=== PATIENT | female | born 1990 | race Caucasian/White ===

== ENCOUNTER 2023-02-22 02:32 | Emergency (ER) | payer MEDICAID ==
[~2023-02-22] VITALS: Ht 157.5 cm; Wt 72.7 kg
[2023-02-22 02:45] VITALS: BP 129/71
== END 2023-02-22 04:33 | disposition left against medical advice (07) ==
LOC: ER 02:35
DX: R10.9 Unspecified abdominal pain (principal); Z53.21 Procedure and treatment not carried out due to patient leaving prior to being seen by health care provider
CPT/HCPCS: 99281

== ENCOUNTER 2023-08-29 09:24 | Inpatient (IN) | payer MEDICAID ==
[~2023-08-29] VITALS: Ht 157.5 cm; Wt 68.0 kg
[2023-08-29] MEDS ORDERED: ondansetron 4mg rapidly disintigrating tab PO ONE (09:45)
[2023-08-29] MEDS ORDERED: mag hydrox/Alum hydrox/simeth 30ml oral suspension PO ONE (09:45)
[2023-08-29] MEDS ORDERED: LIDOcaine Viscous 15ml cup MM PRN (09:45)
[2023-08-29] MEDS ORDERED: normal saline 1000ML IV soln IVB ONE (09:45)
[2023-08-29 10:45] LABS: URINE HCG NEGATIVE (NEG)
[2023-08-29 10:46] LABS: BILIRUBIN,URINE NEGATIVE (Neg); CLARITY,URINE CLEAR (Clear); COLOR,URINE STRAW (Yellow); GLUCOSE, URINE NEGATIVE (Neg); KETONES,URINE NEGATIVE (Neg); LEUKOCYTE ESTERASE ,URINE NEGATIVE (Neg); NITRITES, URINE NEGATIVE (Neg); OCCULT BLOOD,URINE NEGATIVE (Neg); PROTEIN,URINE NEGATIVE (Neg); UA COLLECTION TYPE CLN CATCH MIDSTREAM; UROBILINOGEN,URINE 0.2 E.U/dL (0.2-1.0)
[2023-08-29] MEDS: morphine 2 MG/ML inj. syringe IV PRN ×4 (10:51→20:16)
[2023-08-29 10:58] LABS: BASOPHILS # (AUTO) 0.1 X10'3 (0-0.2); BASOPHILS % (AUTO) 0.5 % (0-1); EOSINOPHILS % (AUTO) 0.2 % (0-6); HEMATOCRIT 40.5 % (35.0-45.0); HEMOGLOBIN 13.6 g/dl (12.0-16.0); LYMPHOCYTES % (AUTO) 8.8 % (21-51); MEAN CORPUSCULAR HEMOGLOBIN 30.3 PG (27.0-31.0); MEAN CORPUSCULAR HGB CONC 33.6 g/dL (33.0-36.5); MEAN CORPUSCULAR VOLUME 90.3 FL (78-98); MEAN PLATELET VOLUME 8.3 FL (7.4-10.4); MONOCYTES # (AUTO) 1.1 X10'3 (0-0.9); MONOCYTES % (AUTO) 9.4 % (2-12); NEUTROPHILS # (AUTO) 9.4 X10'3 (1.8-7.7); NEUTROPHILS % (AUTO) 81.1 % (42-75); PLATELET COUNT 395 X10'3 (140-440); RED BLOOD COUNT 4.48 X10'6 (4.20-5.60); RED CELL DISTRIBUTION WIDTH 13.5 % (11.5-14.5); WHITE BLOOD COUNT 11.6 X10'3 (4.5-11.0)
[2023-08-29] MEDS ORDERED: piperacillin/tazo 4.5gm/100ml 100 ML IV ONE (11:10)
[2023-08-29 11:13] LABS: ALANINE AMINOTRANSFERASE 641 U/L (12-78); ALBUMIN 3.2 G/DL (3.4-5.0); ALKALINE PHOSPHATASE 310 IU/L (46-116); ANION GAP 9 (8-16); ASPARTATE AMINO TRANSFERASE 462 U/L (10-37); BILIRUBIN,TOTAL 5.6 MG/DL (0.1-1.0); BLOOD UREA NITROGEN 3 MG/DL (7-18); BUN/CREATININE RATIO 4.7 (10.0-20.0); CALCIUM 9.3 MG/DL (8.5-10.1); CHLORIDE 99 MMOL/L (99-107); CREATININE 0.64 MG/DL (0.40-0.90); GLUCOSE 123 MG/DL (70-104); LIPASE 153 U/L (16-77); POTASSIUM 3.4 MMOL/L (3.5-5.1); SODIUM 139 MMOL/L (135-145); TOTAL CARBON DIOXIDE 30.6 MMOL/L (24-32); eCRCL 101 ML/MIN; eGFR > 90 ML/MIN
[2023-08-29 11:15] LABS: ALBUMIN/GLOBULIN RATIO 0.6 (1.1-1.5); TOTAL PROTEIN 8.7 G/DL (6.4-8.2)
[2023-08-29] MEDS ORDERED: iohexol 300mg/ml 100ml inj. ONE (11:26)
[2023-08-29] MEDS ORDERED: magnesium 2GM in 50ml NS 50 ML IV PRN (12:20)
[2023-08-29] MEDS ORDERED: magnesium Cl slow-release 64mg tablet PO PRN (12:20)
[2023-08-29] MEDS ORDERED: potassium Cl 40MEQ/1/2NS 520ml 520 ML IV PRN (12:20)
[2023-08-29] MEDS ORDERED: potassium Cl 20 mEq SR tablet PO PRN (12:20)
[2023-08-29] MEDS: nicotine 14mg patch - 24hr TD SCH (12:20)
[2023-08-29] MEDS ORDERED: acetaminophen 325mg tablet PO PRN (12:20)
[2023-08-29] MEDS ORDERED: magnesium 4gm in 100ml NS 100 ML IV PRN (12:20)
[2023-08-29] MEDS ORDERED: ondansetron/PF 4mg/2ml inj IV PRN (12:20)
[2023-08-29] MEDS: normal saline 1000ml 1,000 ML IV SCH (12:59)
[2023-08-29 13:00] LABS: PROTHROMBIN TIME 10.4 SECONDS (9.0-12.0)
[2023-08-29] MEDS: potassium Cl 20 mEq SR tablet PO PRN (13:35)
[2023-08-29] MEDS: piperacillin/tazo 3.375gm/50ml 50 ML IV SCH (20:17)
[2023-08-29] MEDS: enoxaparin 40mg/0.4ml syringe SQ SCH (20:17)
[2023-08-30] VITALS (11 sets, daily range): BP systolic 150–175; BP diastolic 99–132; PULSE 85–124; RESP 12–21; TEMP 97.8–97.9; O2SAT 95–99
[2023-08-30] MEDS: morphine 2 MG/ML inj. syringe IV PRN (01:29)
[2023-08-30] MEDS: normal saline 1000ml 1,000 ML IV SCH ×3 (02:04→18:20)
[2023-08-30 03:32] LABS: BASOPHILS # (AUTO) 0.1 X10'3 (0-0.2); BASOPHILS % (AUTO) 0.4 % (0-1); EOSINOPHILS # (AUTO) 0.1 X10'3 (0-0.9); EOSINOPHILS % (AUTO) 0.6 % (0-6); HEMATOCRIT 37.7 % (35.0-45.0); HEMOGLOBIN 12.7 g/dl (12.0-16.0); LYMPHOCYTES # (AUTO) 1.2 X10'3 (1.1-4.8); LYMPHOCYTES % (AUTO) 9.5 % (21-51); MEAN CORPUSCULAR HEMOGLOBIN 30.4 PG (27.0-31.0); MEAN CORPUSCULAR HGB CONC 33.7 g/dL (33.0-36.5); MEAN CORPUSCULAR VOLUME 90.2 FL (78-98); MEAN PLATELET VOLUME 8.4 FL (7.4-10.4); MONOCYTES # (AUTO) 1.1 X10'3 (0-0.9); NEUTROPHILS % (AUTO) 80.5 % (42-75); PLATELET COUNT 389 X10'3 (140-440); RED BLOOD COUNT 4.18 X10'6 (4.20-5.60); RED CELL DISTRIBUTION WIDTH 13.5 % (11.5-14.5); WHITE BLOOD COUNT 12.4 X10'3 (4.5-11.0)
[2023-08-30 03:42] LABS: ALANINE AMINOTRANSFERASE 482 U/L (12-78); ALBUMIN 2.8 G/DL (3.4-5.0); ALKALINE PHOSPHATASE 347 IU/L (46-116); ANION GAP 8 (8-16); ASPARTATE AMINO TRANSFERASE 228 U/L (10-37); BLOOD UREA NITROGEN 1 MG/DL (7-18); BUN/CREATININE RATIO 1.6 (10.0-20.0); CALCIUM 8.9 MG/DL (8.5-10.1); CHLORIDE 99 MMOL/L (99-107); CREATININE 0.62 MG/DL (0.40-0.90); GLUCOSE 127 MG/DL (70-104); POTASSIUM 3.2 MMOL/L (3.5-5.1); SODIUM 136 MMOL/L (135-145); TOTAL CARBON DIOXIDE 28.9 MMOL/L (24-32); eCRCL 104 ML/MIN; eGFR > 90 ML/MIN
[2023-08-30 03:57] LABS: ALBUMIN/GLOBULIN RATIO 0.5 (1.1-1.5); TOTAL PROTEIN 8.5 G/DL (6.4-8.2)
[2023-08-30] MEDS: piperacillin/tazo 3.375gm/50ml 50 ML IV SCH ×3 (04:06→20:16)
[2023-08-30] MEDS ORDERED: HYDROmorphone 1 mg/ml syringe IV ONE (07:05)
[2023-08-30] MEDS: nicotine 14mg patch - 24hr TD SCH (09:18)
[2023-08-30] MEDS ORDERED: morphine 4 MG/ML inj SYRINge IV PRN (09:40)
[2023-08-30] MEDS: morphine 4 MG/ML inj SYRINge IV PRN ×2 (11:04→20:15)
[2023-08-30] MEDS ORDERED: MIDAZolam 1 MG/ML 5ML VIAL IV PRN (14:05)
[2023-08-30] MEDS ORDERED: fentaNYL/PF 50MCG/1 ML 2ML syringe IV PRN (14:05)
[2023-08-30] MEDS ORDERED: MIDAZolam 1 MG/ML 5ML VIAL ONE ×2 (14:55→15:48)
[2023-08-30] MEDS ORDERED: iohexol 300mg/ml 100ml inj. ONE (14:55)
[2023-08-30] MEDS ORDERED: fentaNYL/PF 50MCG/1 ML 2ML syringe ONE ×2 (14:55→15:48)
[2023-08-30] MEDS ORDERED: LIDOcaine Viscous 15ml cup ONE (14:55)
[2023-08-30] MEDS ORDERED: glucagon, human recombinant 1mg kit ONE (14:55)
[2023-08-30] MEDS ORDERED: NO HOME MEDS (18:19)
[2023-08-30] MEDS: potassium Cl 20 mEq SR tablet PO PRN (20:15)
[2023-08-30] MEDS: enoxaparin 40mg/0.4ml syringe SQ SCH (20:16)
[2023-08-31] VITALS (17 sets, daily range): BP systolic 100–148; BP diastolic 70–95; PULSE 72–118; RESP 14–30; TEMP 97.5–98; O2SAT 94–99
[2023-08-31] MEDS: potassium Cl 20 mEq SR tablet PO PRN (01:14)
[2023-08-31] MEDS: piperacillin/tazo 3.375gm/50ml 50 ML IV SCH ×2 (03:56→17:30)
[2023-08-31] MEDS: normal saline 1000ml 1,000 ML IV SCH ×2 (03:57→16:16)
[2023-08-31] MEDS: nicotine 14mg patch - 24hr TD SCH (07:48)
[2023-08-31 08:09] LABS: BASOPHILS # (AUTO) 0.1 X10'3 (0-0.2); BASOPHILS % (AUTO) 0.5 % (0-1); EOSINOPHILS # (AUTO) 0.1 X10'3 (0-0.9); EOSINOPHILS % (AUTO) 0.8 % (0-6); HEMATOCRIT 34.6 % (35.0-45.0); HEMOGLOBIN 11.7 g/dl (12.0-16.0); LYMPHOCYTES # (AUTO) 1.5 X10'3 (1.1-4.8); LYMPHOCYTES % (AUTO) 15.1 % (21-51); MEAN CORPUSCULAR HEMOGLOBIN 30.4 PG (27.0-31.0); MEAN CORPUSCULAR HGB CONC 33.7 g/dL (33.0-36.5); MEAN CORPUSCULAR VOLUME 90.3 FL (78-98); MEAN PLATELET VOLUME 8.6 FL (7.4-10.4); MONOCYTES # (AUTO) 0.9 X10'3 (0-0.9); MONOCYTES % (AUTO) 9.4 % (2-12); NEUTROPHILS # (AUTO) 7.4 X10'3 (1.8-7.7); NEUTROPHILS % (AUTO) 74.2 % (42-75); PLATELET COUNT 343 X10'3 (140-440); RED BLOOD COUNT 3.83 X10'6 (4.20-5.60); RED CELL DISTRIBUTION WIDTH 13.6 % (11.5-14.5); WHITE BLOOD COUNT 9.9 X10'3 (4.5-11.0)
[2023-08-31 08:44] LABS: ALANINE AMINOTRANSFERASE 281 U/L (12-78); ALBUMIN 2.2 G/DL (3.4-5.0); ALKALINE PHOSPHATASE 339 IU/L (46-116); ANION GAP 9 (8-16); ASPARTATE AMINO TRANSFERASE 116 U/L (10-37); BILIRUBIN,TOTAL 5.1 MG/DL (0.1-1.0); BLOOD UREA NITROGEN 4 MG/DL (7-18); BUN/CREATININE RATIO 8.2 (10.0-20.0); CALCIUM 8.2 MG/DL (8.5-10.1); CHLORIDE 102 MMOL/L (99-107); CREATININE 0.49 MG/DL (0.40-0.90); GLUCOSE 97 MG/DL (70-104); POTASSIUM 3.5 MMOL/L (3.5-5.1); SODIUM 136 MMOL/L (135-145); TOTAL CARBON DIOXIDE 25.1 MMOL/L (24-32); eCRCL 132 ML/MIN; eGFR > 90 ML/MIN
[2023-08-31 08:47] LABS: ALBUMIN/GLOBULIN RATIO 0.5 (1.1-1.5); TOTAL PROTEIN 6.8 G/DL (6.4-8.2)
[2023-08-31] MEDS ORDERED: BUPIVAcaine 2.5mg/ml inj 50ml vial (contains preservative) ONE (12:47)
[2023-08-31] MEDS ORDERED: midazolam 1 mg/ML 2ml injection ONE (18:02)
[2023-08-31] MEDS ORDERED: fentaNYL/PF 50MCG/1 ML 2ML syringe ONE ×3 (18:02→20:51)
[2023-08-31] MEDS ORDERED: meperidine/PF 25mg/ml syringe IV PRN ×3 (18:10)
[2023-08-31] MEDS ORDERED: morphine 2 MG/ML inj. syringe IV PRN (18:10)
[2023-08-31] MEDS ORDERED: ondansetron/PF 4mg/2ml inj IV PRN ×2 (18:10→21:50)
[2023-08-31] MEDS ORDERED: morphine 4 MG/ML inj SYRINge IV PRN ×2 (18:10→21:50)
[2023-08-31] MEDS ORDERED: ringers solution, lacted 1,000 ML IV SCH (18:10)
[2023-08-31] MEDS ORDERED: INDOCYANINE GREEN 25 MG/10 ML VIAL IV ONE (18:22)
[2023-08-31] MEDS ORDERED: neostigmine methylsulfate 1 MG/ML 10ml vial ONE (18:32)
[2023-08-31] MEDS ORDERED: sevoflurane 250ml liquid IH ONE (18:32)
[2023-08-31] MEDS ORDERED: glycopyrrolate 0.2mg/ml inj ONE (18:32)
[2023-08-31] MEDS ORDERED: BUPIVAcaine/PF 2.5 mg/ml (0.25%) 30ml vial IJ ONE (19:00)
[2023-08-31] MEDS ORDERED: propofol inj 20 ML IV ONE (19:05)
[2023-08-31] MEDS ORDERED: LIDOcaine 2% (20mg/ml) 5ml vial ONE (19:05)
[2023-08-31] MEDS ORDERED: rocuronium 10mg/ml inj IV ONE ×2 (19:05→20:22)
[2023-08-31] MEDS ORDERED: ondansetron/PF 4mg/2ml inj ONE (19:05)
[2023-08-31] MEDS ORDERED: dexamethasone sod phosphate 4mg/ml inj. ONE (19:05)
[2023-08-31] MEDS: enoxaparin 40mg/0.4ml syringe SQ SCH (20:00)
[2023-08-31] MEDS ORDERED: phenylephrine 10mg/ml inj. -priapism dosing ONE (20:57)
[2023-08-31] MEDS ORDERED: BUPIVAcaine/PF 2.5mg/ml (0.25%) 10ml vial ONE (21:08)
[2023-08-31] MEDS ORDERED: BUPIVACAINE liposomal/PF 13.3 MG/ML vial IM ONE (21:08)
[2023-08-31] MEDS ORDERED: HYDROcodone/acetaminophen 5mg/325mg tablet PO PRN (21:50)
[2023-08-31] MEDS ORDERED: meperidine/PF 25mg/ml syringe ONE (21:50)
[2023-08-31] MEDS ORDERED: naloxone 0.4 mg/ml inj IV PRN (21:50)
[2023-08-31] MEDS ORDERED: sugammadex 200mg/2ml injection IV ONE (22:34)
[2023-08-31] MEDS: proCHLORperazine 10 MG/2 ml inj IV PRN ×2 (22:37→23:01)
[2023-08-31] MEDS: ketorolac trometh. 30mg/ml inj. IV PRN (23:05)
[2023-09-01] VITALS (9 sets, daily range): BP systolic 120–135; BP diastolic 75–84; PULSE 99–115; RESP 18–21; TEMP 97.5–98.6; O2SAT 95–98
[2023-09-01] MEDS: normal saline 1000ml 1,000 ML IV SCH ×3 (00:20→22:37)
[2023-09-01] MEDS: piperacillin/tazo 3.375gm/50ml 50 ML IV SCH ×3 (04:34→16:32)
[2023-09-01 07:31] LABS: BASOPHILS % (AUTO) 0.1 % (0-1); EOSINOPHILS % (AUTO) 0 % (0-6); HEMATOCRIT 32.9 % (35.0-45.0); HEMOGLOBIN 11.1 g/dl (12.0-16.0); LYMPHOCYTES # (AUTO) 0.9 X10'3 (1.1-4.8); MEAN CORPUSCULAR HEMOGLOBIN 30.9 PG (27.0-31.0); MEAN CORPUSCULAR HGB CONC 33.6 g/dL (33.0-36.5); MEAN CORPUSCULAR VOLUME 91.8 FL (78-98); MEAN PLATELET VOLUME 8.5 FL (7.4-10.4); MONOCYTES # (AUTO) 1.8 X10'3 (0-0.9); MONOCYTES % (AUTO) 9.3 % (2-12); NEUTROPHILS # (AUTO) 16.4 X10'3 (1.8-7.7); NEUTROPHILS % (AUTO) 85.6 % (42-75); PLATELET COUNT 388 X10'3 (140-440); RED BLOOD COUNT 3.58 X10'6 (4.20-5.60); RED CELL DISTRIBUTION WIDTH 13.6 % (11.5-14.5); WHITE BLOOD COUNT 19.1 X10'3 (4.5-11.0)
[2023-09-01 07:49] LABS: ALANINE AMINOTRANSFERASE 223 U/L (12-78); ALBUMIN 2.1 G/DL (3.4-5.0); ALBUMIN/GLOBULIN RATIO 0.4 (1.1-1.5); ALKALINE PHOSPHATASE 295 IU/L (46-116); ANION GAP 11 (8-16); ASPARTATE AMINO TRANSFERASE 107 U/L (10-37); BILIRUBIN,TOTAL 2.4 MG/DL (0.1-1.0); BLOOD UREA NITROGEN 8 MG/DL (7-18); BUN/CREATININE RATIO 12.5 (10.0-20.0); CALCIUM 8.2 MG/DL (8.5-10.1); CHLORIDE 105 MMOL/L (99-107); CREATININE 0.64 MG/DL (0.40-0.90); GLUCOSE 100 MG/DL (70-104); SODIUM 136 MMOL/L (135-145); TOTAL CARBON DIOXIDE 20.1 MMOL/L (24-32); TOTAL PROTEIN 6.8 G/DL (6.4-8.2); eCRCL 101 ML/MIN; eGFR > 90 ML/MIN
[2023-09-01] MEDS: nicotine 14mg patch - 24hr TD SCH (08:00)
[2023-09-01] MEDS: morphine 4 MG/ML inj SYRINge IV PRN ×2 (08:23→14:14)
[2023-09-01 11:56] LABS: HBSAG SCREEN Negative (Negative); HEP A AB, IGM Negative (Negative); HEPATITIS C VIRUS ANTIBODY Non Reactive (Non Reactive)
[2023-09-01] MEDS: ketorolac trometh. 30mg/ml inj. IV PRN (16:32)
[2023-09-01] MEDS: enoxaparin 40mg/0.4ml syringe SQ SCH (19:54)
[2023-09-02] MEDS: piperacillin/tazo 3.375gm/50ml 50 ML IV SCH ×2 (01:54→08:03)
[2023-09-02 02:00] VITALS: BP 144/89; PULSE 108; RESP 19; TEMP 97.9; O2SAT 96
[2023-09-02 07:00] VITALS: BP 145/95; PULSE 112; RESP 16; TEMP 97.7; O2SAT 98
[2023-09-02] MEDS: morphine 4 MG/ML inj SYRINge IV PRN (07:21)
[2023-09-02] MEDS: normal saline 1000ml 1,000 ML IV SCH (07:21)
[2023-09-02] MEDS: nicotine 14mg patch - 24hr TD SCH (07:21)
[2023-09-02 07:35] LABS: BASOPHILS % (AUTO) 0.3 % (0-1); EOSINOPHILS # (AUTO) 0.1 X10'3 (0-0.9); HEMATOCRIT 30.8 % (35.0-45.0); HEMOGLOBIN 10.4 g/dl (12.0-16.0); LYMPHOCYTES # (AUTO) 1.5 X10'3 (1.1-4.8); LYMPHOCYTES % (AUTO) 13.5 % (21-51); MEAN CORPUSCULAR HEMOGLOBIN 30.8 PG (27.0-31.0); MEAN CORPUSCULAR HGB CONC 33.7 g/dL (33.0-36.5); MEAN CORPUSCULAR VOLUME 91.4 FL (78-98); MEAN PLATELET VOLUME 8.1 FL (7.4-10.4); MONOCYTES # (AUTO) 1.2 X10'3 (0-0.9); MONOCYTES % (AUTO) 10.8 % (2-12); NEUTROPHILS # (AUTO) 8.3 X10'3 (1.8-7.7); NEUTROPHILS % (AUTO) 74.4 % (42-75); PLATELET COUNT 379 X10'3 (140-440); RED BLOOD COUNT 3.37 X10'6 (4.20-5.60); RED CELL DISTRIBUTION WIDTH 14.3 % (11.5-14.5); WHITE BLOOD COUNT 11.2 X10'3 (4.5-11.0)
[2023-09-02 08:00] VITALS: RESP 16; O2SAT 98
[2023-09-02 09:04] LABS: ALANINE AMINOTRANSFERASE 155 U/L (12-78); ALBUMIN/GLOBULIN RATIO 0.4 (1.1-1.5); ALKALINE PHOSPHATASE 233 IU/L (46-116); ANION GAP 11 (8-16); ASPARTATE AMINO TRANSFERASE 55 U/L (10-37); BILIRUBIN,TOTAL 1.5 MG/DL (0.1-1.0); BLOOD UREA NITROGEN 3 MG/DL (7-18); BUN/CREATININE RATIO 5.2 (10.0-20.0); CALCIUM 8.2 MG/DL (8.5-10.1); CHLORIDE 102 MMOL/L (99-107); CREATININE 0.58 MG/DL (0.40-0.90); GLUCOSE 120 MG/DL (70-104); POTASSIUM 3.1 MMOL/L (3.5-5.1); SODIUM 137 MMOL/L (135-145); TOTAL CARBON DIOXIDE 24.3 MMOL/L (24-32); TOTAL PROTEIN 6.8 G/DL (6.4-8.2); eCRCL 111 ML/MIN; eGFR > 90 ML/MIN
[2023-09-02 11:00] VITALS: BP 137/88; PULSE 118; RESP 12; TEMP 98.9; O2SAT 100
[2023-09-02] MEDS ORDERED: magnesium 4gm in 100ml NS 100 ML IV PRN (14:45)
[2023-09-02] MEDS ORDERED: potassium Cl 40MEQ/1/2NS 520ml 520 ML IV PRN (14:45)
[2023-09-02] MEDS ORDERED: magnesium Cl slow-release 64mg tablet PO PRN (14:45)
[2023-09-02] MEDS ORDERED: potassium Cl 20 mEq SR tablet PO PRN ×2 (14:45)
[2023-09-02] MEDS ORDERED: magnesium 2GM in 50ml NS 50 ML IV PRN (14:45)
[2023-09-02 15:00] VITALS: BP 127/78; PULSE 98; RESP 16; TEMP 98; O2SAT 95
[2023-09-02] MEDS ORDERED: HYDR-3964 PO (16:16)
== END 2023-09-02 17:15 | disposition home or self-care (01) | DRG 263 ==
LOC: ER 09:25 → ED HOLD 12:23 → EDBEDREQ 08-30 08:58 → PCU 3S 08-30 09:35
PROVIDERS: ADMIT Internal Medicine; ATTEND Internal Medicine
PROC: 0F798DZ Dilation of Common Bile Duct with Intraluminal Device, Via Natural or Artificial Opening Endoscopic (ICD-10-PCS; 2023-08-30)
PROC: BF101ZZ Fluoroscopy of Bile Ducts using Low Osmolar Contrast (ICD-10-PCS; 2023-08-30)
PROC: 8E0W4CZ Robotic Assisted Procedure of Trunk Region, Percutaneous Endoscopic Approach (ICD-10-PCS; 2023-08-31)
PROC: 0WJG0ZZ Inspection of Peritoneal Cavity, Open Approach (ICD-10-PCS; 2023-08-31)
PROC: 0FT44ZZ Resection of Gallbladder, Percutaneous Endoscopic Approach (ICD-10-PCS; principal; 2023-08-31 18:32)
DX: K80.62 Calculus of gallbladder and bile duct with acute cholecystitis without obstruction (principal); R74.01 Elevation of levels of liver transaminase levels
CPT/HCPCS: 36415; 43262; 43264; 43274; 74018; 74177; 74181; 76700; 80053; 81003; 81025; 83605; 83690; 84145; 85025; 85610; 86709; 86803; 86885; 86900; 86901; 87040; 87340; 87522; 97161; 97530; 97535; 99152; 99153; 99285; A4215; A4618; A4620; A7000; C1769; C2625; C9290; G0378; J0780; J1100; J1170; J1610; J1650; J1885; J2175; J2250; J2270; J2370; J2405; J2543; J2704; J2710; J3010; J3490; J7030; J7040; J7120; Q9967

== ENCOUNTER 2023-11-30 09:39 | Day surgery (SDC) | payer MEDICAID ==
[2023-11-30] VITALS (10 sets, daily range): BP systolic 122–151; BP diastolic 82–104; PULSE 57–86; RESP 14–20; O2SAT 99–100
[~2023-11-30 09:39] MED LIST: HYDR-3964 PO; NO HOME MEDS
[2023-11-30] MEDS ORDERED: MIDAZolam 1 MG/ML 5ML VIAL ONE (11:45)
[2023-11-30] MEDS ORDERED: iohexol 300mg/ml 100ml inj. ONE (11:45)
[2023-11-30] MEDS ORDERED: fentaNYL/PF 50MCG/1 ML 2ML syringe ONE (11:45)
[2023-11-30] MEDS ORDERED: glucagon, human recombinant 1mg kit ONE (11:45)
[2023-11-30] MEDS ORDERED: LIDOcaine Viscous 15ml cup ONE (11:58)
== END 2023-11-30 14:25 | disposition home or self-care (01) ==
LOC: GI LAB 09:39
PROVIDERS: ATTEND Internal Medicine Gastroenterology
DX: K80.50 Calculus of bile duct without cholangitis or cholecystitis without obstruction (principal)
CPT/HCPCS: 43262; 43264; 99152; 99153; J2250; J3010; J7030; Q9967; Z7512; Z7610; A4620; C1769; J1610